=== PATIENT | female | born 1990 | race Caucasian/White ===

== ENCOUNTER → 2016-05-14 | Outpatient (CLI) | payer OTHER ==
[2016-05-14 08:07] LABS: BASO # 0.1 K/mm3 (0.0-0.2); BASO % 1.6 % (0.0-1.0); EOS # 0.5 K/mm3 (0.0-0.50); EOS % 6.5 % (0.0-3.0); LARGE UNSTAINED CELL # 0.2 K/mm3 (0.0-0.4); LARGE UNSTAINED CELL % 2.5 % (0.0-4.0); LYMPH # 3.3 K/mm3 (1.5-6.5); LYMPH % 42.8 % (24.0-44.0); MEAN CORPUSCULAR HEMOGLOBIN 32.7 pg (27.0-33.0); MEAN CORPUSCULAR HGB CONC 34.6 g/dl (32.0-36.5); MEAN CORPUSCULAR VOLUME 94.5 fl (80.0-96.0); MONO # 0.4 K/mm3 (0.0-0.8); NEUTROPHILS # 2.9 K/mm3 (1.8-7.7); NEUTROPHILS % 40.6 % (36.0-66.0); PLATELET COUNT, AUTOMATED 242 k/mm3 (150-450); RED CELL DISTRIBUTION WIDTH 12.1 % (11.5-14.5); WHITE BLOOD COUNT 7.2 K/mm3 (4.0-10.0)
[2016-05-14 08:38] LABS: ALBUMIN 3.8 GM/DL (3.2-5.2); ALBUMIN/GLOBULIN RATIO 1.46 (1.00-1.93); ALKALINE PHOSPHATASE 50 U/L (45-117); ALT/SGPT 13 U/L (12-78); ANION GAP 9 MEQ/L (8-16); AST/SGOT 8 U/L (15-37); BILIRUBIN,TOTAL 0.6 MG/DL (0.2-1.0); BLOOD UREA NITROGEN 16 MG/DL (7-18); CALCIUM LEVEL 8.7 MG/DL (8.5-10.1); CARBON DIOXIDE LEVEL 25 MEQ/L (21-32); CHLORIDE LEVEL 109 MEQ/L (98-107); CREATININE FOR GFR 0.75 MG/DL (0.55-1.02); GLOMERULAR FILTRATION RATE > 60.0 (>60); GLUCOSE, FASTING 90 MG/DL (70-105); SODIUM LEVEL 143 MEQ/L (136-145); TOTAL PROTEIN 6.4 GM/DL (6.4-8.2)
== END ==
LOC: M LAB 05-13 11:04
PROVIDERS: ATTEND Nurse Practitioner Family
DX: R25.1 Tremor, unspecified (principal); R68.83 Chills (without fever); R11.0 Nausea; L65.9 Nonscarring hair loss, unspecified; R23.8 Other skin changes

== ENCOUNTER → 2016-05-16 | Outpatient (CLI) | payer OTHER ==
--- NOTE | 2016-05-16 12:18 | REP ---
Focused left axillary ultrasound: History: Left axillary lymphadenopathy. Palpable lump. Findings: The left axilla was scanned in the area where the patient previously felt a palpable lump. She states she cannot feel the lump today. No evidence of lymphadenopathy or mass. There is a small subdermal hypoechoic zone consistent with a sebaceous cyst 0.3 cm in greatest diameter. No other abnormality is seen. Impression: BIRADS category II benign focused left axillary ultrasound. Clinical follow-up is advised. Signed by Luis Felipe Salas MD 05/16/2016 03:09 P
== END ==
LOC: M RAD 10:32
PROVIDERS: ATTEND Nurse Practitioner Family
DX: R59.1 Generalized enlarged lymph nodes (principal)

== ENCOUNTER → 2016-07-18 | Outpatient (REF) | payer OTHER ==
[2016-07-18 12:06] LABS: FERRITIN 41 NG/ML (8-252); FREE T4 1.05 NG/DL (0.76-1.46)
== END ==
LOC: M SFHCLERA 09:48
PROVIDERS: ATTEND Family Medicine
DX: R19.7 Diarrhea, unspecified (principal); R42 Dizziness and giddiness

== ENCOUNTER 2019-10-27 08:45 | Outpatient (RCR) | payer OTHER | END 2019-11-02 | LOC: M PT 08:45 | PROVIDERS: ATTEND Family Medicine | DX: M25.511 Pain in right shoulder (principal) ==

== ENCOUNTER 2019-11-03 09:31 | Outpatient (RCR) | payer OTHER | END 2019-12-03 | LOC: M PT 09:31 | PROVIDERS: ATTEND Family Medicine | DX: M25.511 Pain in right shoulder (principal) ==

== ENCOUNTER → 2023-01-13 | Outpatient (CLI) | payer OTHER | LOC: M RAD 09:22 | PROVIDERS: ATTEND Family Medicine | DX: S22.41XA Multiple fractures of ribs, right side, initial encounter for closed fracture (principal); S27.0XXD Traumatic pneumothorax, subsequent encounter; Y92.9 Unspecified place or not applicable; Y93.9 Activity, unspecified ==